=== PATIENT | female | born 1960 | race Caucasian/White ===

== ENCOUNTER 2024-01-16 06:18 | Emergency (ER) | payer OTHER, SELFPAY ==
[2024-01-16 06:21] VITALS: BP 120/84
--- NOTE | 2024-01-16 07:00 | ED.GENMED ---
History of Present Illness
General
Chief Complaint: Flank Pain
Source: patient
Exam Limitations: none
Time Seen by Provider: 01/16/24 06:54
Nursing documentation reviewed up to this point in time: agreed with
Travel History
Have you had any contact with someone who has COVID-19?: No
Do you have any symptoms of coronavirus? Fever > 100 degrees, chills, cough, shortness of breath, sore throat, loss of taste or smell, muscle aches, or headache?: No
History of Present Illness
History of Present Illness:
63-year-old female with History of , ectopic , presents stating she has had ongoing left flank pain for the past 5 days, her PCP prescribed tramadol which she did not take until 2 AM this morning when the pain became worse. Pain
also started to radiate around the left abdomen. She states pain is 8/10 now. She has been nauseous and vomiting, last emesis 2 hours ago. Denies fever or chills. Denies diarrhea or constipation. Last BM yesterday and normal.
Past History
Past History
ED Past Medical History: Asthma and Other (Chronic neck/back pain)
ED Past Surgical History: , Gynecological (ectopic ) and Orthopedic
Social History
Tobacco: Smoker
Alcohol: None
Drug: None
Living: with family
Employment: Employed
Review of Systems
Review of Systems
Allergies reviewed?: Yes
All Other Systems: ROS reviewed and negative except as documented in HPI and ROS
Constitutional: Denies fever or chills
Respiratory: Denies trouble breathing
Cardiac: Denies chest pain
ABD/GI: Reports abdominal pain, nausea and vomiting; Denies diarrhea or constipated
: Reports flank pain (Left); Denies dysuria, frequency or difficulty voiding
Musculoskeletal: Reports no symptoms
Skin: Reports no symptoms
Neurological: Reports no symptoms
Phy Exam
Physical Exam
Physical Exam:
GENERAL: No acute distress. A&Ox3. Moderate distress due to pain
CONSTITUTIONAL: Afebrile.
EYES: Clear, conjunctivae normal
ENMT: Clear moist mucus membranes, Pharynx nl
RESPIRATORY: Regular respirations, nonlabored, lungs clear.
CARDIOVASCULAR: Regular rate and rhythm, no murmurs, no rubs.
GI: Soft, non tender, tender left flank
MUSCULOSKELETAL: Moves with ease. Well perfused.
SKIN: Warm, dry, pink
PSYCH: Anxious mood and affect. Well kept, interactive and appropriate
NEUROLOGIC: Awake, alert and oriented. No focal neurological deficits
Course
Orders/Labs/Results
Orders:
Orders
01/16/24 06:59
IV Insert/Care/Rem.- Treatment PRN
0.9% Sodium Chloride 1000 ml [Nss] 1,000 ml IV BOLUS
HYDROmorphone [Dilaudid] 1 mg IV NOW STA
Ondansetron Injectable [Zofran] 4 mg IV NOW STA
01/16/24 07:00
CT Abd/pel Without Iv Or Oral Urgent
Comment:
Reason For Exam: L flank pain
01/16/24 07:15
Complete Blood Count/With Diff Urgent
Comprehensive Metabolic Panel Urgent
UA Reflex to Culture [Urinalysis Reflex To Culture] Stat
Date Specimen was Collected: 01/16/24
Time Specimen was Collected: 07:12
Urine Microscopic Reflex Cult Stat
Abnormal Lab Results
01/16/24
07:15
RBC 3.94 L 10^6/uL
(4.20-5.40)
MCH 31.5 H pg
(27.0-31.0)
Urine Ketones 1+ A
(Negative)
Ur Occult Blood Reflex 2+ A
(Negative)
Urine RBC 11-15 A /HPF
(0-2)
Urine Bacteria (Reflex) Few A
(Negative)
05/31/24 07:15
01/16/24 07:15
Vital Signs
Initial and Last Documented VS:
Initial Vital Signs
Temp Pulse Resp BP Pulse Ox
98.2 F 77 22 120/84 97
01/16/24 06:21 01/16/24 06:21 01/16/24 06:21 01/16/24 06:21 01/16/24 06:21
Last Documented Vital Signs
Temp Pulse Resp BP Pulse Ox
97.6 F 76 18 151/86 99
01/16/24 10:34 01/16/24 10:34 01/16/24 10:34 01/16/24 10:34 01/16/24 10:34
Oven Unloader consulted with Physician
Oven Unloader consulted with physician?: Yes
Name of Physician Consulted: Андрей
MDM/Problems Addressed
Differential Diagnosis Includes:
kidney stone, UTI, pyelonephritis, diverticulitis
MDM/Problems Addressed:
63-year-old female with History of , ectopic , presents stating she has had ongoing left flank pain for the past 5 days, her PCP prescribed tramadol which she did not take until 2 AM this morning when the pain became worse. Pain
also started to radiate around the left abdomen. She states pain is 8/10 now. She has been nauseous and vomiting, last emesis 2 hours ago. Denies fever or chills. Denies diarrhea or constipation. Last BM yesterday and normal.
Appears moderately uncomfortable laying on left side with knees drawn up.
Afebrile
8:45 AM
CBC unremarkable
CMP normal
UA: 11-15 RBCs, 2+ occult blood, no infection
CAT scan abdomen pelvis radiology report reviewed: IMPRESSION:
No evidence of urinary tract calculus or dilatation bilaterally.
9:10 AM
in to reevaluate patient. She states her pain is much improved now 3/10
Explained negative workup save for red blood cells in the urine, may be a recently passed stone.
10:20 AM
Patient out of bed and dressed, states she is having 7/10 pain. Explained that she may have recently passed a stone, nothing in her workup today to explain her pain.
Her belly is absolutely benign at this time, normal BS, no diarrhea, not symptomatic of diverticulitis, if symptoms persist or other signs may need CT with po and IV contrast. Reviewed these signs with pt. and she knows when to return .
Case discussed with Dr. Chiang who agrees
She has mild pain with percussion to the left flank
She is ambulating well
She has tramadol at home needed for worse pain
She will follow-up with her PCP next week if feeling no better
Return instructions reviewed
*Critical Care Note
Total Time (30-74mins, 75-104mins- exclusive of procedures): Not Applicable
ED Attending Note
-
Portions of this chart may have been created with voice recognition software.� Occasional wrong word or��sound alike� substitutions may have occurred due to the inherent limitations of voice recognition software.
Discharge Plan
Departure
Patient Disposition: Home (Routine Discharge)
Date of Disposition: 01/16/24
Time of Disposition: 10:25
Patient with high blood pressure during this ER visit?: No
Condition: Fair
Discharge Problem:
Abdominal pain, Acute flank pain
Instructions: Abdominal Pain, Adult ED, Flank Pain ED
Prescriptions:
No Action
prednisone 20 mg tablet
40 mg PO DAILY Qty: 14 0RF
prednisone 50 mg tablet
50 mg PO DAILY Qty: 5 0RF
Referrals:
Yajaira Meléndez CRNP [Family Provider] - Follow up in 5-7 days
Activity Restrictions/Additional Instructions:
As we discussed, your CAT scan and blood work showed nothing worrisome
There was a small amount of blood in your urine which may indicate a recently passed kidney stone which may have been the cause of your pain.
See your doctor in 3 to 4 days if your pain is not much improved by then.
Ibuprofen 600 mg, with food, every 6 hours as needed for mild to moderate pain and use the tramadol you have at home if needed for worse pain.
Return here immediately for fever, vomiting, worsening pain, bloody stools or anything that concerns you.
Interventions
Interventions:
*Risk Screen - Suicide Last Done: 01/16/24 06:21
*General Assessment Last Done: 01/16/24 06:21
*Neglect/Abuse Screening Last Done: 01/16/24 06:21
ED- Fall Risk Assessment Last Done: 01/16/24 06:21
*ED COVID-19 Vaccine History Last Done: 01/16/24 06:21
*Nursing Disposition Last Done: 01/16/24 10:58
KU-Jkgrbf-Igwgeukfre Assessment Last Done: 01/16/24 08:04
ED-Female Genitourinary Assessment Last Done: 01/16/24 10:36
Discharge Date and Time
Discharge Date/Time: 01/16/24 10:59
Print Language: [place]
[2024-01-16 07:10] VITALS: BMI 20.5
[2024-01-16] MEDS: ZOFRAN 4 MG IV (07:15)
[2024-01-16] MEDS: NSS 1000 IV (07:15)
[2024-01-16] MEDS: DILAUDID 1 MG IV (07:16)
[2024-01-16 07:31] LABS: Urine Albumin Negative (Neg - Trace); Urine Bilirubin Negative (Negative); Urine Character Clear (Clear); Urine Color Yellow; Urine Glucose Negative (Negative); Urine Ketone 1+ (Negative); Urine Leukocyte Negative (Negative); Urine Nitrite Negative (Negative); Urine Occult Blood 2+ (Negative); Urine Urobilinogen Negative (Neg - 1+)
[2024-01-16 07:33] LABS: % Basophils 0.7 % (0-2); % Eosinophils 2.7 % (0-6); % Immature Granulocytes 0.4 % (0-0.5); % Lymphocytes 27.1 % (20.5-51.1); % Monocytes 4.6 % (1.7-9.3); % Neutrophils 64.5 % (42.2-75.2); Absolute Basophils 0.1 10^3/uL (0-0.2); Absolute Eosinophils 0.3 10^3/uL (0-0.7); Absolute Lymphocytes 2.6 10^3/uL (1.2-3.4); Absolute Monocytes 0.4 10^3/uL (0.1-0.6); Absolute Neutrophils 6.2 10^3/uL (1.4-6.5); Hematocrit 37.1 % (37.0-47.0); Hemoglobin 12.4 g/dL (12.0-16.0); Mean Corp Hgb Conc. 33.4 g/dL (33.0-37.0); Mean Corpuscular Hgb 31.5 pg (27.0-31.0); Mean Corpuscular Volume 94.2 fL (81.0-99.0); Mean Platelet Volume 9.5 fL (7.4-10.4); Nucleated Red Blood Cells % 0 %; Platelet Count 321 10^3/uL (130-400); Red Blood Cell Count 3.94 10^6/uL (4.20-5.40); Red Cell Dist. Width 13.9 % (11.5-14.5); White Blood Cell Count 9.6 10^3/uL (4.8-10.8)
[2024-01-16 07:41] LABS: ALT (SGPT) 17 U/L (0-35); AST (SGOT) 28 U/L (14-36); Albumin 3.8 g/dl (3.5-5.0); Alkaline Phosphatase 75 U/L (38-126); Blood Urea Nitrogen 15 mg/dl (7-17); Calcium 9.1 mg/dl (8.4-10.2); Carbon Dioxide 29 mmol/L (22-30); Chloride 102 mmol/L (98-107); Estimated Creatinine Clearance 60 ml/min; Glucose 94 mg/dl (70-99); Potassium 4.3 mmol/L (3.5-5.1); Sodium 136 mmol/L (135-145); Total Bilirubin 0.5 mg/dl (0.2-1.3); Total Protein 6.8 g/dl (6.3-8.2); eGFR > 60.00
[2024-01-16 07:43] LABS: Urine Bacteria Few (Negative); Urine White Cell 0-2 /HPF (0-5)
[2024-01-16 10:34] VITALS: BP 151/86
== END 2024-01-16 10:59 | disposition home or self-care (01) ==
LOC: EMR 06:18
PROVIDERS: Registered Nurse; EMERGENCY PHYSICIAN Emergency Medicine; FAMILY PHYSICIAN Nurse Practitioner
DX: R10.9 Unspecified abdominal pain (principal); F17.200 Nicotine dependence, unspecified, uncomplicated
CPT/HCPCS: 99284; 96374; 96375; 74176; 80053; 81003; 81015; 85025